=== PATIENT | male | born 1995 | race Caucasian/White ===

== ENCOUNTER 2021-08-31 10:20 | Outpatient (REF) | payer BC, SELFPAY ==
[2021-08-31 11:15] LABS: COVID-19 Test Negative (Negative)
== END 2021-08-31 10:21 | disposition home or self-care (01) ==
LOC: HO.LAB 10:20
PROVIDERS: Visit Provider Internal Medicine
DX: Z20.822 Contact with and (suspected) exposure to COVID-19 (principal)
CPT/HCPCS: 36415; 87635; C9803

== ENCOUNTER 2021-09-06 13:21 | Outpatient (REF) | payer BC, SELFPAY | END 2021-09-06 13:22 | disposition home or self-care (01) | LOC: HO.LAB 13:21 | PROVIDERS: Visit Provider Internal Medicine | DX: Z20.822 Contact with and (suspected) exposure to COVID-19 (principal) | CPT/HCPCS: C9803; U0003; U0005 ==